=== PATIENT | female | born 1935 ===

== ENCOUNTER 2018-06-06 06:26 | Day surgery (SDC) | payer OTHER ==
[~2018-06-06 06:26] MED LIST: AMARYL PO; FOLGARD TABLET1 EACH PO; PEPCID20 MG PO; PRAVACHOL80 MG PO; [UNRECOGNIZED DRUG - OTHER] PO
== END 2018-06-06 18:15 | disposition home or self-care (01) ==
LOC: CIR.AMB 06:26 → EDBD 07:45 → CIR.AMB 07:45
DX: S52.592A Other fractures of lower end of left radius, initial encounter for closed fracture (principal)
CPT/HCPCS: 25118; 25280; 25609; C1776